=== PATIENT | male | born 1965 | race African-American/Black ===

== ENCOUNTER 2018-07-10 11:30 | Day surgery (SDC) | payer OTHER ==
[2018-07-03 15:13] VITALS: BMI 54.1
[~2018-07-10 11:30] MED LIST: DEXAMETHASONE SOD PHOSPHATE 10 MG/ML 1 ML VIAL IV ONE; HEPARIN SODIUM,PORCINE 5,000 UNIT/ML 1 ML VIAL SQ ONE; LIDOCAINE 1% 20 ML VIAL (10MG/ML) FOR IV START INTRADERMA PRN; MIDAZOLAM 2 MG/2 ML VIAL IV PRN; ONDANSETRON 4 MG/2 ML VIAL IVP ONE; SCOPOLAMINE 1.5MG/72HR PATCH TRANSDERM ONE; ceFAZolin IN SWFI 2 GM/20 ML SYRINGE IVP ONE
[2018-07-10] MEDS: LACTATED RINGERS 1,000 ML IV SCH ×2 (12:27→14:16)
--- NOTE | 2018-07-10 14:10 | P.GSHP ---
History of Present Illness H&P Date: 07/10/18 Chief Complaint: Umbilical hernia, incarcerated This is a morbidly obese male known BMI 54 who's had trouble with an incarcerated umbilical hernia. Patient has a 3 cm pressure buckle hernia. He presents today for laparoscopic robotic assistance repair. Past Medical History Past Medical History: Sleep Apnea/CPAP/BIPAP Additional Past Medical History / Comment(s): STATES HE WILL BE RECEIVING MACHINE FOR SLEEP APNEA., UMBILICAL HERNIA., STATES LYMPH EDEMA IN LEGS- WAS HOSPITALIZED AT [facility] 06/13-06/16/18 . , WEARING COMPRESSION STOCKINGS. History of Any Multi-Drug Resistant Organisms: None Reported Past Surgical History: No Surgical Hx Reported Additional Past Anesthesia/Blood Transfusion Reaction / Comment(s): PATIENT HAS NEVER RECEIVED ANESTHESIA. Past Psychological History: No Psychological Hx Reported Smoking Status: Never smoker Past Alcohol Use History: Occasional Past Drug Use History: None Reported - Past Family History Mother Family Medical History: Cancer Additional Family Medical History / Comment(s): BREAST CANCER Medications and Allergies Home Medications Medication Instructions Recorded Confirmed Type Hydrochlorothiazide 50 mg PO DAILY 07/03/18 07/10/18 History Allergies Allergy/AdvReac Type Severity Reaction Status Date / Time No Known Allergies Allergy Verified 07/03/18 15:02 Surgical - Exam Vital Signs Temp Pulse Resp BP Pulse Ox 97.6 F 95 20 142/81 96 07/10/18 12:24 07/10/18 12:24 07/10/18 12:24 07/10/18 12:24 07/10/18 12:24 - General well developed, no distress - Eyes PERRL - ENT normal pinna - Neck no masses - Respiratory normal expansion - Cardiovascular Rhythm: regular - Abdomen Abdomen: soft, non tender Hernia: umbilical (3 cm incarcerated umbilical hernia) Assessment and Plan Assessment: Incarcerated umbilical hernia. We'll perform laparoscopic robotic-assisted repair.
[2018-07-10] MEDS ORDERED: ROCURONIUM BROMIDE 10 MG/ML 10 ML VIAL IV ONE (14:18)
[2018-07-10] MEDS ORDERED: fentaNYL (PF) 50 MCG/ML 2 ML AMP ONE (14:18)
[2018-07-10] MEDS ORDERED: ROPIVACAINE 5 MG/ML 30 ML VIAL ONE (14:18)
[2018-07-10] MEDS ORDERED: KETOROLAC 30 MG/ML 1 ML VIAL ONE (14:18)
[2018-07-10] MEDS ORDERED: GLYCOPYRROLATE 0.2 MG/ML 2 ML VIAL ONE (14:18)
[2018-07-10] MEDS ORDERED: DEXAMETHASONE SOD PHOS (MDV) 100 MG/10 ML VIAL ONE (14:18)
[2018-07-10] MEDS ORDERED: SUCCINYLCHOLINE CHLORIDE 100 MG/5 ML SYR IV ONE (14:18)
[2018-07-10] MEDS ORDERED: PROPOFOL 10 MG/ML 20 ML VIAL IV ONE (14:18)
[2018-07-10] MEDS ORDERED: NEOSTIGMINE 1 MG/ML 10 ML VIAL ONE (14:18)
[2018-07-10] MEDS ORDERED: LIDOCAINE 1% INJ 10MG/ML (20 ML MDV) ONE (14:18)
[2018-07-10] MEDS ORDERED: MIDAZOLAM 2 MG/2 ML VIAL ONE (14:18)
[2018-07-10] MEDS ORDERED: LACTATED RINGERS 1,000 ML IV ONE (14:55)
[2018-07-10] MEDS ORDERED: BUPIVACAIN-EPI 0.5%-1:200,000 30 ML VIAL SQ ONE (15:18)
--- NOTE | 2018-07-10 15:27 | P.ONQ ---
Anesthesiology Proc Note - PNB - Peripheral Nerve Block Performed Bilateral Rectus Abdominis Single Procedure Start Time: 11:30 Procedure Stop Time: 11:50 Indication: Acute Post-Operative Pain, Requested by physician Sedation Type: Sedate with meaningful contact maintained Preparation: Sterile Prep Position: Supine Needle Size: 50mm (2") Needle Gauge: 21 Technique: Ultrasound (15 ml solution infiltrated Bilaterally )
--- NOTE | 2018-07-10 15:34 | P.OP ---
Date of Procedure: 07/10/18 Preoperative Diagnosis: Incarcerated umbilical hernia Postoperative Diagnosis: Incarcerated umbilical hernia Procedure(s) Performed: Operative Robotic-assisted repair of incarcerated umbilical hernia Anesthesia: MEHRAN Surgeon: Ruben Mcknight Estimated Blood Loss (ml): 5 Pathology: other (Omentum/hernia sac) Condition: stable Disposition: PACU Description of Procedure: The patient was placed on the operating table in the supine position. He received general anesthesia. His abdomen was prepped and draped usual fashion. Using a 5 mm optical trocar under direct visualization the peritoneal cavity was entered in the left upper quadrant. The abdomen was then insufflated. The laparoscope was placed back into the perineal cavity. Next a 8 mm robotic trocar was placed in the left lower quadrant and a 12 mm robotic trocar was placed in the left lateral position. The original 5 mm trocar was exchanged for a 8 mm robotic trocar. The patient's placed in the left side up position. And the patient was undocked the robot. The umbilical hernia was visualized. Using hook cautery the peritoneum over the umbilical hernia was excised. The omentum was freed by dissecting with the hook cautery. The omentum was transected. The fascial opening was repaired using 0V LOC suture. Next a piece of 11 cm round ventral light ST mesh was placed into the. Cavity and secured with 2 OV lock suture. The patient was undocked the robot. The needles were retrieved. The omentum was retrieved and sent to pathology. The fascia of the 12 mm trocar site was closed with 0 Ethibond suture. Skin was closed interrupted 3-0 Monocryl suture. Dermabond dressings was applied. Patient top procedure well and was sent to recovery room stable condition.
[2018-07-10 15:47] VITALS: TEMP 98.4
[2018-07-10] MEDS: HYDROmorphone 0.5 MG/0.5 ML SYRINGE IVP PRN ×4 (16:06→16:31)
[2018-07-10 16:09] VITALS: RESP 18
[2018-07-10 17:29] VITALS: BP 109/60; PULSE 87
== END 2018-07-10 17:59 | disposition home or self-care (01) ==
LOC: OR 11:30
PROVIDERS: ATTEND Surgery
DX: K42.0 Umbilical hernia with obstruction, without gangrene (principal); E66.01 Morbid (severe) obesity due to excess calories; I10 Essential (primary) hypertension; Z68.43 Body mass index [BMI] 50.0-59.9, adult; Z99.89 Dependence on other enabling machines and devices; Z79.899 Other long term (current) drug therapy; G47.33 Obstructive sleep apnea (adult) (pediatric)
CPT/HCPCS: 49653; 64488; C1781; J2250; J1644; J1100 ×2; J2710; J2405; J2001; J3010; J1885; J2795; J0330; J2704; J1170; J0690; 88302

== ENCOUNTER → 2018-08-19 | Outpatient (CLI) | payer OTHER ==
[2018-08-19 15:07] LABS: HCT 43.9 % (39.0-53.0); HGB 14.3 gm/dL (13.0-17.5); MCH 29.4 pg (25.0-35.0); MCHC 32.6 g/dL (31.0-37.0); MCV 90.1 fL (80.0-100.0); Mean Platelet Volume 7.3; Platelet Count 235 k/uL (150-450); RBC 4.87 m/uL (4.30-5.90); RDW 13.5 % (11.5-15.5); WBC 7.9 k/uL (3.8-10.6)
[2018-08-19 15:18] LABS: Albumin 4.3 g/dL (3.5-5.0); Calcium 9.8 mg/dL (8.4-10.2); Potassium 4.3 mmol/L (3.5-5.1); Total Bilirubin 0.6 mg/dL (0.2-1.3); Total Protein 8.1 g/dL (6.3-8.2)
[2018-08-19 15:22] VITALS: BP 146/80; PULSE 97; TEMP 98.2; BMI 53.1
--- NOTE | 2018-08-19 16:35 | P.HPBAR ---
Bariatric H&P - History & Physicial H&P Date: 08/19/18 History & Physicial: Visit/CC: sleeve consult Patient initial contact: 07/29/18 Initial weight: 156.444 kg Initial weight in pounds: 344.90 Height: 5 ft 7.5 in Initial BMI: 53.1 Last weight: Current weight: 156.444 kg Current weight in pounds: 344.90 Current BMI: 53.1 [place] body weight (based on NIH guidelines): 68.492 kg Excess body weight loss: 0.0% The patient is a 53 year-old M who presents for Bariatric Assessment. Patient presents today for sleeve gastrectomy consultation. Patient is morbidly obese with BMI of 53. He's had lifetime problems obesity. Past Medical History Past Medical History: Hypertension, Sleep Apnea/CPAP/BIPAP Additional Past Medical History / Comment(s): STATES HE WILL BE RECEIVING MACHINE FOR SLEEP APNEA., UMBILICAL HERNIA., STATES LYMPH EDEMA IN LEGS- WAS HOSPITALIZED AT [facility] 06/13-06/16/18 . , WEARING COMPRESSION STOCKINGS. History of Any Multi-Drug Resistant Organisms: None Reported Past Surgical History: Hernia Repair Additional Past Surgical History / Comment(s): Umbilical hernia repaired Jul 2018 Additional Past Anesthesia/Blood Transfusion Reaction / Comm: PATIENT HAS NEVER RECEIVED ANESTHESIA. Past Psychological History: No Psychological Hx Reported Smoking Status: Never smoker Past Alcohol Use History: Occasional Past Drug Use History: None Reported - Past Family History Mother Family Medical History: Cancer Additional Family Medical History / Comment(s): BREAST CANCER Surgical - Exam Vital Signs Temp Pulse BP 98.2 F 97 146/80 08/19/18 13:46 08/19/18 13:46 08/19/18 13:46 - General well developed, well nourished, no distress - Eyes PERRL - ENT normal pinna, normal nares - Respiratory normal expansion - Cardiovascular Rhythm: regular - Abdomen Abdomen: soft, non tender Results - Labs 08/19/18 14:44 08/19/18 14:44 Abnormal Lab Results - Last 24 Hours (Table) 08/19/18 Range/Units 14:44 Carbon Dioxide 33 H (22-30) mmol/L BUN 22 H (9-20) mg/dL Diabetes panel 08/19/18 Range/Units 14:44 Sodium 141 (137-145) mmol/L Potassium 4.3 (3.5-5.1) mmol/L Chloride 101 (98-107) mmol/L Carbon Dioxide 33 H (22-30) mmol/L BUN 22 H (9-20) mg/dL Creatinine 1.14 (0.66-1.25) mg/dL Glucose 94 (74-99) mg/dL Calcium 9.8 (8.4-10.2) mg/dL AST 22 (17-59) U/L ALT 31 (21-72) U/L Alkaline Phosphatase 55 (38-126) U/L Total Protein 8.1 (6.3-8.2) g/dL Albumin 4.3 (3.5-5.0) g/dL Thyroid panel 08/19/18 Range/Units 14:44 TSH 1.830 (0.465-4.680) mIU/L Calcium panel 08/19/18 Range/Units 14:44 Calcium 9.8 (8.4-10.2) mg/dL Albumin 4.3 (3.5-5.0) g/dL Pituitary panel 08/19/18 Range/Units 14:44 Sodium 141 (137-145) mmol/L Potassium 4.3 (3.5-5.1) mmol/L Chloride 101 (98-107) mmol/L Carbon Dioxide 33 H (22-30) mmol/L BUN 22 H (9-20) mg/dL Creatinine 1.14 (0.66-1.25) mg/dL Glucose 94 (74-99) mg/dL Calcium 9.8 (8.4-10.2) mg/dL TSH 1.830 (0.465-4.680) mIU/L Adrenal panel 08/19/18 Range/Units 14:44 Sodium 141 (137-145) mmol/L Potassium 4.3 (3.5-5.1) mmol/L Chloride 101 (98-107) mmol/L Carbon Dioxide 33 H (22-30) mmol/L BUN 22 H (9-20) mg/dL Creatinine 1.14 (0.66-1.25) mg/dL Glucose 94 (74-99) mg/dL Calcium 9.8 (8.4-10.2) mg/dL Total Bilirubin 0.6 (0.2-1.3) mg/dL AST 22 (17-59) U/L ALT 31 (21-72) U/L Alkaline Phosphatase 55 (38-126) U/L Total Protein 8.1 (6.3-8.2) g/dL Albumin 4.3 (3.5-5.0) g/dL Bariatric Assessment & Plan Plan: Morbid obesity with BMI 53. Patient will be scheduled for EGD. We will over the risks and benefits of sleeve gastrectomy including gastric staple line perforation, scarring or obstruction. Bariatric Checklist Checklist: Plan: Checklist: EGD: 1. Hiatal hernia: 2. H. Pylori: HgbA1c: Vitamin D: Smoking: Never smoker Primary care physician referral: Randy Grady Psychiatry clearance: Cardiology clearance: Sleep study: Diet journal: VTE risk score: VTE risk level: Rehab needs at discharge:
[2018-08-19 19:36] LABS: Vitamin D 25 Hydroxy 10.3 ng/mL (30.0-100.0)
[2018-08-19 21:16] LABS: Hemoglobin A1C 5.3 % (4.0-6.0)
== END ==
LOC: BARWHC3 13:33
PROVIDERS: ATTEND Surgery
DX: E66.01 Morbid (severe) obesity due to excess calories (principal); E88.81 Metabolic syndrome and other insulin resistance; E44.0 Moderate protein-calorie malnutrition; E55.9 Vitamin D deficiency, unspecified; Z68.43 Body mass index [BMI] 50.0-59.9, adult
CPT/HCPCS: 84425; 80053; 82607; 84443; 85027; 82306; 83036; 93005; 36415; G0463; 99201

== ENCOUNTER 2018-08-29 08:09 | Day surgery (SDC) | payer OTHER ==
[2018-08-27 11:35] VITALS: BMI 53.8
[~2018-08-29 08:09] MED LIST changes: -DEXAMETHASONE SOD PHOSPHATE 10 MG/ML 1 ML VIAL IV ONE; -HEPARIN SODIUM,PORCINE 5,000 UNIT/ML 1 ML VIAL SQ ONE; +LACTATED RINGERS 1,000 ML IV SCH; -LIDOCAINE 1% 20 ML VIAL (10MG/ML) FOR IV START INTRADERMA PRN; -MIDAZOLAM 2 MG/2 ML VIAL IV PRN; -ONDANSETRON 4 MG/2 ML VIAL IVP ONE; -SCOPOLAMINE 1.5MG/72HR PATCH TRANSDERM ONE; -ceFAZolin IN SWFI 2 GM/20 ML SYRINGE IVP ONE
[2018-08-29 08:35] VITALS: TEMP 97.8
[2018-08-29] MEDS ORDERED: LACTATED RINGERS 1,000 ML IV ONE (08:37)
[2018-08-29] MEDS ORDERED: LIDOCAINE 1% 20 ML VIAL (10MG/ML) FOR IV START INTRADERMA ONE (08:37)
--- NOTE | 2018-08-29 09:17 | P.GSHP ---
History of Present Illness H&P Date: 08/29/18 Chief Complaint: Morbid obesity This a 53-year-old male who's had lifetime problems obesity. Patient's BMI is 54. He is currently undergoing workup for sleeve gastrectomy. Patient presents today for EGD. He's had some minimal GERD symptoms. Past Medical History Past Medical History: Sleep Apnea/CPAP/BIPAP, Vascular Disorder Additional Past Medical History / Comment(s): varicose veins, edema in lower legs, wears compression socks, History of Any Multi-Drug Resistant Organisms: None Reported Past Surgical History: Hernia Repair Additional Past Surgical History / Comment(s): Umbilical hernia repaired Jul 2018 Past Anesthesia/Blood Transfusion Reactions: No Reported Reaction Additional Past Anesthesia/Blood Transfusion Reaction / Comment(s): . Smoking Status: Never smoker - Past Family History Mother Family Medical History: Cancer Additional Family Medical History / Comment(s): BREAST CANCER Medications and Allergies Home Medications Medication Instructions Recorded Confirmed Type Hydrochlorothiazide 50 mg PO DAILY 07/03/18 08/27/18 History Allergies Allergy/AdvReac Type Severity Reaction Status Date / Time No Known Allergies Allergy Verified 08/27/18 11:28 Surgical - Exam Vital Signs Temp Pulse Resp BP Pulse Ox 97.8 F 86 18 174/94 98 08/29/18 08:34 08/29/18 08:34 08/29/18 08:34 08/29/18 08:34 08/29/18 08:34 - General well developed, no distress - Eyes PERRL - ENT normal pinna - Neck no masses - Respiratory normal expansion - Cardiovascular Rhythm: regular - Abdomen Abdomen: soft, non tender Assessment and Plan Assessment: Morbid obesity, BMI 54 GERD We'll perform EGD.
[2018-08-29] MEDS ORDERED: PROPOFOL 10 MG/ML 20 ML VIAL IV ONE (09:20)
[2018-08-29] MEDS ORDERED: LIDOCAINE 1% INJ 10MG/ML (20 ML MDV) ONE (09:20)
[2018-08-29 09:51] VITALS: BP 105/71; PULSE 79; RESP 18
--- NOTE | 2018-09-06 10:20 | P.OP ---
Date of Procedure: 08/29/18 Preoperative Diagnosis: Morbid obesity, BMI 54 GERD Postoperative Diagnosis: Morbid obesity, BMI 54 Antral gastritis Procedure(s) Performed: EGD Anesthesia: MAC Surgeon: Ruben Mcknight Pathology: other (Antrum) Condition: stable Disposition: PACU Description of Procedure: The patient's placed on the endoscopy table in the lateral position. He received IV sedation. The gastroscope was placed oropharynx and passed in the esophagus into the stomach. Scope was then placed through the pylorus. The first and second portion of the duodenum appeared normal. Scope was then brought back the antrum this. Mildly inflamed. A biopsy was performed. The scope was then retroflexed remainder stomach appeared normal. There is no significant hiatal hernia. The GE junction was at 47. The distal esophagus. Normal. The proximal esophagus appeared normal. Scope was withdrawn from patient.
== END 2018-08-29 10:05 | disposition home or self-care (01) ==
LOC: ORWHC2ENDO 08:09
PROVIDERS: ATTEND Surgery
DX: K29.50 Unspecified chronic gastritis without bleeding (principal); K21.9 Gastro-esophageal reflux disease without esophagitis; E66.01 Morbid (severe) obesity due to excess calories; R60.0 Localized edema; G47.33 Obstructive sleep apnea (adult) (pediatric); Z99.89 Dependence on other enabling machines and devices; Z68.43 Body mass index [BMI] 50.0-59.9, adult
CPT/HCPCS: 88305; 43239; J2001; J2704

== ENCOUNTER → 2018-09-30 | Outpatient (CLI) | payer OTHER ==
[2018-09-30 13:33] VITALS: BP 111/63; PULSE 77; TEMP 98.1; BMI 53.4
--- NOTE | 2018-09-30 16:59 | P.HPBAR ---
Bariatric H&P - History & Physicial H&P Date: 09/30/18 History & Physicial: Visit/CC: presurgical consultation Patient initial contact: 07/29/18 Initial weight: 156.444 kg Initial weight in pounds: 344.90 Height: 5 ft 7.5 in Initial BMI: 53.1 Last weight: Current weight: 156.943 kg Current weight in pounds: 346.00 Current BMI: 53.4 [place] body weight (based on NIH guidelines): 68.492 kg Excess body weight loss: The patient is a 53 year-old M who presents for Bariatric Assessment. Patient presents today for presurgical sleeve consultation. He is undergone previous EGD. He is being evaluated by primary care and psychology next month. He is morbidly obese with BMI of 53. Past Medical History Past Medical History: Sleep Apnea/CPAP/BIPAP, Vascular Disorder Additional Past Medical History / Comment(s): varicose veins, edema in lower legs, wears compression socks, History of Any Multi-Drug Resistant Organisms: None Reported Past Surgical History: Hernia Repair Additional Past Surgical History / Comment(s): Umbilical hernia repaired Jul 2018 Past Anesthesia/Blood Transfusion Reactions: No Reported Reaction Additional Past Anesthesia/Blood Transfusion Reaction / Comm: . Smoking Status: Never smoker - Past Family History Mother Family Medical History: Cancer Additional Family Medical History / Comment(s): BREAST CANCER Surgical - Exam Vital Signs Temp Pulse BP 98.1 F 77 111/63 09/30/18 13:31 09/30/18 13:31 09/30/18 13:31 - General well developed, well nourished, no distress - Eyes PERRL - ENT normal pinna - Neck no masses - Respiratory normal expansion - Cardiovascular Rhythm: regular - Abdomen Abdomen: soft, non tender Bariatric Assessment & Plan Plan: Morbid obesity with BMI 53. Patient will follow-up in 6 weeks. He will be seeing his primary care doctor and psychologist for presurgical clearance. Bariatric Checklist Checklist: Plan: Checklist: EGD: 1. Hiatal hernia: 2. H. Pylori: HgbA1c: Vitamin D: Smoking: Never smoker Primary care physician referral: Randy Grady Psychiatry clearance: Cardiology clearance: Sleep study: Diet journal: VTE risk score: VTE risk level: Rehab needs at discharge:
== END | disposition home or self-care (01) ==
LOC: BARWHC3 13:00
PROVIDERS: ATTEND Surgery
DX: Z01.818 Encounter for other preprocedural examination (principal); E66.01 Morbid (severe) obesity due to excess calories; G47.30 Sleep apnea, unspecified; E55.9 Vitamin D deficiency, unspecified; I83.893 Varicose veins of bilateral lower extremities with other complications; Z98.890 Other specified postprocedural states; Z99.89 Dependence on other enabling machines and devices; Z68.43 Body mass index [BMI] 50.0-59.9, adult
CPT/HCPCS: 99211

== ENCOUNTER → 2018-12-16 | Outpatient (CLI) | payer OTHER ==
--- NOTE | 2018-12-16 11:49 | CT ---
EXAMINATION TYPE: CT chest w con DATE OF EXAM: 12/16/2018 COMPARISON: None HISTORY: Follow-up lung nodules. CT DLP: 854 mGycm Automated exposure control for dose reduction was used. CONTRAST: CT scan of the chest is performed with IV Contrast, patient injected with 100 mL of Isovue M300. FINDINGS: LUNGS: Nonspecific pulmonary nodules identified. Pulmonary nodule right lower lobe image 42 measures 7.7 mm. Additional right lower lobe pulmonary nodule measures 3 mm image 35. There is scattered subpl eural 3 mm nodules identified. 4.3 mm pulmonary nodule right lower lobe image 37. No distinct left-si ded pulmonary nodules seen. No pulmonary infiltrate. MEDIASTINUM: There are no greater than 1 cm hilar or mediastinal lymph nodes. No pericardial effusi on is seen. Thoracic aorta is of normal caliber. The heart is not enlarged. UPPER ABDOMEN: No significant abnormality appreciated. OTHER: No additional significant abnormality is seen. IMPRESSION: 1. Nonspecific pulmonary nodularity. Follow-up in 3-4 months is advised.
== END | disposition home or self-care (01) ==
LOC: RADCTMAIN 11:09
PROVIDERS: ATTEND Family Medicine
DX: R91.1 Solitary pulmonary nodule (principal)
CPT/HCPCS: 71260; Q9967

== ENCOUNTER → 2018-12-16 | Outpatient (CLI) | payer OTHER ==
[2018-12-16 13:50] VITALS: BP 146/98; PULSE 81; TEMP 97.9; BMI 55.3
--- NOTE | 2018-12-17 10:50 | P.HPBAR ---
Bariatric H&P - History & Physicial H&P Date: 12/16/18 History & Physicial: Visit/CC: presurgical visit Patient initial contact: 07/29/18 Initial weight: 156.444 kg Initial weight in pounds: 344.90 Height: 5 ft 7 in Initial BMI: 54.0 Last weight: Current weight: 160.118 kg Current weight in pounds: 353.00 Current BMI: 55.3 [place] body weight (based on NIH guidelines): 67.132 kg Excess body weight loss: The patient is a 53 year-old M who presents for Bariatric Assessment. Patient presents today for presurgical consultation. Patient's BMI is 55. He is interested in the sleeve gastrectomy. He's had lifetime problems obesity. Past Medical History Past Medical History: Sleep Apnea/CPAP/BIPAP, Vascular Disorder Additional Past Medical History / Comment(s): varicose veins, edema in lower legs, wears compression socks, History of Any Multi-Drug Resistant Organisms: None Reported Past Surgical History: Hernia Repair Additional Past Surgical History / Comment(s): Umbilical hernia repaired Jul 2018 Past Anesthesia/Blood Transfusion Reactions: No Reported Reaction Additional Past Anesthesia/Blood Transfusion Reaction / Comm: . Past Psychological History: No Psychological Hx Reported Smoking Status: Never smoker Past Alcohol Use History: Occasional Past Drug Use History: None Reported - Past Family History Mother Family Medical History: Cancer Additional Family Medical History / Comment(s): BREAST CANCER Surgical - Exam Vital Signs Temp Pulse BP 97.9 F 81 146/98 12/16/18 13:41 12/16/18 13:41 12/16/18 13:41 - General well developed, well nourished, no distress - Eyes PERRL - ENT normal pinna - Neck no masses - Respiratory normal expansion - Abdomen Abdomen: soft, non tender Bariatric Assessment & Plan Plan: Morbid obesity with BMI of 55. Patient will follow-up in 8 weeks. We'll plan for EGD. Patient is morbidly obese. We went over the risks and benefits of the sleeve gastrectomy. He is aware the risk of staple line disruption, bleeding or scarring. Bariatric Checklist Checklist: Plan: Checklist: EGD: 1. Hiatal hernia: 2. H. Pylori: HgbA1c: Vitamin D: Smoking: Never smoker Primary care physician referral: Randy Grady Psychiatry clearance: Cardiology clearance: Sleep study: Diet journal: VTE risk score: VTE risk level: Rehab needs at discharge:
== END | disposition home or self-care (01) ==
LOC: BARWHC3 12:44
PROVIDERS: ATTEND Surgery
DX: E66.01 Morbid (severe) obesity due to excess calories (principal); G47.30 Sleep apnea, unspecified; I83.893 Varicose veins of bilateral lower extremities with other complications; Z99.89 Dependence on other enabling machines and devices; Z68.43 Body mass index [BMI] 50.0-59.9, adult; Z98.890 Other specified postprocedural states
CPT/HCPCS: 71260; 99211